=== PATIENT | male | born 2000 | race Caucasian/White ===

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

== ENCOUNTER 2019-11-19 15:10 | Emergency (ER) | payer OTHER ==
[~2019-11-19] VITALS: Ht 182 cm; Wt 72.5 kg
[~2019-11-19 15:10] MED LIST changes: +CEPH-507 PO
[2019-11-19] MEDS ORDERED: TETRACAINE 0.5% OPHTH SOLN 4 ML BTL (SINGLE DOSE ONLY) OU ONE (16:30)
[2019-11-19] MEDS ORDERED: BSS 15 ML IR ONE (16:30)
[2019-11-19] MEDS ORDERED: FLUORESCEIN (FLUOR-I-STRIPS) 1 MG STRP OU ONE (16:30)
[2019-11-19] MEDS ORDERED: TROPICAMIDE 1% OPH SOLN (MYDRIACYL) 3 ML BTL OU ONE (17:15)
--- NOTE | 2019-11-19 17:21 | ED EENT ---
History of Present Illness General Chief Complaint: Eye Problems Stated Complaint: FOREIGN OBJECT IN EYE Nursing Triage Note: PT PRESENTS TO ED WITH COMPLAINTS OF L EYE PAIN AFTER GRINDING SOME METAL TODAY. PT BELIEVES HE GOT SOME METAL IN HIS EYE. History of Present Illness Date Seen by Provider: Nov 19, 2019 Time Seen by Provider: 15:45 Initial Comments 19 year old male present with foreign body to left eye. Patient reports he was using a wire brush to clean a trailer, he is afraid one of the bristles came off and is in his left eye. He does not wear contacts or glasses. He was not wearing eye protection. No previous history of injuries to the left eye. Location: eye (L) Associated Symptoms: denies symptoms Allergies and Home Medications Allergies Coded Allergies: No Known Drug Allergies (Unverified , 08/10/14) Home Medications Cephalexin 500 Mg Capsule, 500 MG PO TID Prescribed by: KATHRINE MCCLELLAND on 12/21/16 2342 Cephalexin Monohydrate 500 Mg Capsule, 1 EACH PO BID Prescribed by: JEANNETTE DEL REAL on 08/10/14 1722 Hydrocodone Bit/Acetaminophen 1 Tab Tablet, 1-2 TAB PO Q6H PRN for PAIN Prescribed by: JEANNETTE DEL REAL on 08/10/14 1722 Tobramycin 5 Ml Drops, 2 DROPS OS Q4H Prescribed by: KATHRINE MCCLELLAND on 11/19/19 1724 Patient Home Medication List Home Medication List Reviewed: Yes Review of Systems Review of Systems Constitutional: no symptoms reported, see HPI Eyes: See HPI, Blurred Vision, Foreign Body Sensation, Inflammation, Pain All Other Systems Reviewed Negative Unless Noted: Yes Past Bulyxxg-Csehlh-Saogvi Hx Past Med/Social Hx: Reviewed Nursing Past Med/Soc Hx Patient Social History Alcohol Use: Occasionally Uses Recreational Drug Use: No Smoking Status: Never a Smoker 2nd Hand Smoke Exposure: No Recent Foreign Travel: No Contact w/Someone Who Travel: No Recent Infectious Disease Expo: No Recent Hopitalizations: No Physical Abuse: No Sexual Abuse: No Mistreated: No Fear: No Immunizations Up To Date Tetanus Booster (TDap): Unknown PED Vaccines UTD: Yes Seasonal Allergies Seasonal Allergies: No Past Medical History Surgeries: No Respiratory: No Cardiac: Yes Heart Murmur Neurological: No Genitourinary: No Gastrointestinal: No Musculoskeletal: No Endocrine: No HEENT: No Cancer: No Psychosocial: No Integumentary: No Blood Disorders: No Physical Exam Vital Signs Vital Signs - First Documented 11/19/19 15:23 Temp 36.8 Pulse 76 Resp 20 B/P (MAP) 145/90 (108) Pulse Ox 98 Height, Weight, BMI Height: 6'0" Weight: 165lbs. oz. 74.076328gh; 21.00 BMI Method:Stated General Appearance: WD/WN, no apparent distress Eyes: right eye normal inspection; left eye PERRL, left eye EOMI, left eye corneal abrasion, left eye ocular penetration (metal bristle into cornea, over pupil) Neck: non-tender, full range of motion, supple, normal inspection Cardiovascular: normal peripheral pulses, regular rate, rhythm Respiratory: chest non-tender, lungs clear, normal breath sounds Neurologic/Psychiatric: no motor/sensory deficits, alert, normal mood/affect, oriented x 3 Procedures/Interventions Eye : Location: left eye Eye FB Removal: other (Using needle drive, the metal bristle was gently removed, penetrated approximately 2 mm) Anesthesia (gtts): Tetracaine Progress/Procedure Conclusion small fluid released after bristle removed, no continued fluid. Patient reports immediate relief in symptoms. Spoke to Dr. Ni by phone. Used Florescein and Neg Sedel's sign. Pupil dilated with Tropicamide Progress/Results/Core Measures Results/Orders My Orders Orders - KATHRINE MCCLELLAND Tropicamide 1% Ophthalmic Soln (Mydriacy (11/19/19 17:15) Medications Given in ED Current Medications Medications Dose Ordered Sig/Thang Route Start Time Stop Time Status Last Admin Dose Admin Balanced Salt Solution 15 ml ONCE ONCE IR 11/19/19 16:30 11/19/19 16:31 DC 11/19/19 17:00 15 ML Fluorescein Sodium 1 mg ONCE ONCE OU 11/19/19 16:30 11/19/19 16:31 DC 11/19/19 17:00 1 MG Tetracaine HCl 4 ml ONCE ONCE OU 11/19/19 16:30 11/19/19 16:31 DC 11/19/19 17:00 4 ML Tropicamide 1 TO 2 DROPS INTO AFFEC... ONCE ONCE OU 11/19/19 17:15 11/19/19 17:16 DC 11/19/19 17:28 1 ML Vital Signs/I&O 11/19/19 11/19/19 15:23 17:33 Temp 36.8 Pulse 76 80 Resp 20 16 B/P (MAP) 145/90 (108) 130/76 Pulse Ox 98 98 Blood Pressure Mean: 108 Progress Progress Note : Time: 15:45 Progress Note Patient seen and evaluated, will need bristle removed. Procedure discussed with patient, agreeable. 1630 Neg Sedel sign. Pain much better. Discharge instructions and return precautions reviewed. Stressed importance to keep appt with Dr. Ni tomorrw. Departure Impression Primary Impression: Eye foreign body Qualified Codes: T15.92XA - Foreign body on external eye, part unspecified, left eye, initial encounter Disposition: HOME, SELF-CARE Condition: Improved Departure-Patient Inst. Decision time for Depature: 17:20 Referrals: TORITO CALLE OD,LOCAL PHYSICIAN (PCP) Primary Care Physician Patient Instructions: Foreign Body in Eye (DC) Add. Discharge Instructions: Use artificial tears to left eye, as needed over night and in the morning. Use antibiotic drops, as prescribed. Go to see Dr. Ni tomorrow morning at 10:00 am. Do NOT miss this appt. You can cover eye and keep closed, to promote healing. If your symptoms get much worse over night, increased pain, you can call Dr. Ni [phone] He may alternate between Tylenol 650 mg and ibuprofen 600 mg every 4 hours for pain. You may apply wet washcloth left eye as needed. Return to the Emergency Dept for new, urgent health care needs. All discharge instructions reviewed with patient and/or family. Voiced understanding. Scripts Tobramycin (Tobramycin) 5 Ml Drops 2 DROPS OS Q4H, #1 5ML 0 Refills Prov: KATHRINE MCCLELLAND 11/19/19 Copy Copies To 1: TORITO CALLE OD, AMY ARNP Nov 19, 2019 17:21
[2019-11-19] MEDS ORDERED: TBR.3OP51 OS (17:24)
[2019-11-19 17:33] VITALS: BP 130/76
== END 2019-11-19 17:33 | disposition home or self-care (01) ==
LOC: EDUNIT# 15:10 → ER 15:12
DX: T15.02XA Foreign body in cornea, left eye, initial encounter (principal)
CPT/HCPCS: 99282

== ENCOUNTER 2019-11-20 12:12 | Emergency (ER) | payer OTHER ==
[~2019-11-20] VITALS: Ht 182.8 cm; Wt 72.6 kg
[~2019-11-20 12:12] MED LIST changes: +TBR.3OP51 OS
[2019-11-20] MEDS ORDERED: LEVOFLOXACIN 750 MG/150 ML IV 150 ML IV ONE (12:15)
--- NOTE | 2019-11-20 12:37 | ED EENT ---
History of Present Illness General Chief Complaint: Eye Problems Stated Complaint: FOREIGN BODY IN LEFT EYE Source: patient Exam Limitations: no limitations History of Present Illness Date Seen by Provider: Nov 20, 2019 Time Seen by Provider: 12:34 Initial Comments To ER from Dr. Hunt's office. He was seen here last night for a little wire in his left cornea while he was wire brushing something. This was removed, Valeriy's test was negative. Followed up with Dr. Hunt today and there is concern for endophthalmitis. He would like a CT of the left orbit and a dose of 1 g Avelox IV. Timing/Duration: abrupt Severity: moderate Location: eye (L) Associated Symptoms: denies symptoms Allergies and Home Medications Allergies Coded Allergies: No Known Drug Allergies (Unverified , 08/10/14) Home Medications Cephalexin 500 Mg Capsule, 500 MG PO TID Prescribed by: KATHRINE MCCLELLAND on 12/21/16 2342 Cephalexin Monohydrate 500 Mg Capsule, 1 EACH PO BID Prescribed by: JEANNETTE DEL REAL on 08/10/14 1722 Hydrocodone Bit/Acetaminophen 1 Tab Tablet, 1-2 TAB PO Q6H PRN for PAIN Prescribed by: JEANNETTE DEL REAL on 08/10/14 1722 Tobramycin 5 Ml Drops, 2 DROPS OS Q4H Prescribed by: KATHRINE MCCLELLAND on 11/19/19 1724 Patient Home Medication List Home Medication List Reviewed: Yes Review of Systems Review of Systems Constitutional: see HPI Eyes: See HPI Ears: No Symptoms Reported Nose: no symptoms reported Mouth: no symptoms reported Throat: no symptoms reported Respiratory: no symptoms reported Cardiovascular: no symptoms reported Musculoskeletal: no symptoms reported Skin: no symptoms reported Past Qzajzhl-Nzojpp-Wjznhj Hx Patient Social History Alcohol Use: Denies Use Recreational Drug Use: No Smoking Status: Never a Smoker 2nd Hand Smoke Exposure: No Recent Foreign Travel: No Contact w/Someone Who Travel: No Recent Hopitalizations: No Immunizations Up To Date Tetanus Booster (TDap): Unknown PED Vaccines UTD: Yes Seasonal Allergies Seasonal Allergies: No Past Medical History Surgeries: No Respiratory: No Cardiac: Yes Heart Murmur Neurological: No Genitourinary: No Gastrointestinal: No Musculoskeletal: No Endocrine: No HEENT: No Cancer: No Psychosocial: No Integumentary: No Blood Disorders: No Visual Acuity : Eye Location: Left Physical Exam Vital Signs Vital Signs - First Documented 11/20/19 12:21 Temp 36.9 Pulse 72 Resp 20 B/P (MAP) 150/119 (129) Pulse Ox 99 O2 Delivery Room Air Height, Weight, BMI Height: 6'0" Weight: 165lbs. oz. 74.732750rh; 21.00 BMI Method:Stated General Appearance: WD/WN, no apparent distress Eyes: left eye other (left eye has a small rust spot noted at what was presumably the puncture wound. There is some haziness of the cornea around this. There is scleral injection.) Mouth/Throat: normal mouth inspection, pharynx normal Neck: non-tender, full range of motion Respiratory: no respiratory distress, no accessory muscle use Neurologic/Psychiatric: alert, normal mood/affect, oriented x 3 Progress/Results/Core Measures Results/Orders My Orders Orders - JEANNETTE DEL REAL APRN Levofloxacin 750 Mg/150 Ml Iv (Levaquin (11/20/19 12:15) Ed Iv/Invasive Line Start (11/20/19 12:14) Ct Orbit Wo (11/20/19 12:14) Medications Given in ED Current Medications Medications Dose Ordered Sig/Thang Route Start Time Stop Time Status Last Admin Dose Admin Levofloxacin/ Dextrose 150 ml @ 100 mls/hr ONCE ONCE IV 11/20/19 12:15 11/20/19 13:44 11/20/19 13:17 100 MLS/HR Vital Signs/I&O 11/20/19 12:21 Temp 36.9 Pulse 72 Resp 20 B/P (MAP) 150/119 (129) Pulse Ox 99 O2 Delivery Room Air Departure Communication (Admissions) NAME: HERMES BUSTOS MED REC#: [id number] PT STATUS: REG ER : 2000 PHYSICIAN: JEANNETTE DEL REAL APRN ADMIT DATE: 11/20/19/ER Draft Date of Exam:11/20/19 CT ORBIT WO PROCEDURE: CT orbit without contrast. TECHNIQUE: Multiple contiguous axial images were obtained through the facial bones without the use of intravenous contrast. Auto Exposure Controls were utilized during the CT exam to meet ALARA standards for radiation dose reduction. INDICATION: Questionable foreign body in the left orbit. FINDINGS: Both globes are unremarkable. The extraocular muscles appear to be symmetric. No retro-orbital fluid collection is seen. The overlying soft tissues appear to be fairly symmetric. No definite radiopaque foreign body is identified. The orbital mcfarlane are intact. No fractures are seen. The visualized paranasal sinuses are clear. IMPRESSION: Unremarkable CT of the orbits. Dictated on workstation # [id number] Dict: 11/20/19 1314 Trans: 11/20/19 1318 [id number] Interpreted by: SHAUN RIBERA MD Electronically signed by: Impression Primary Impression: Eye infection Qualified Codes: H44.002 - Unspecified purulent endophthalmitis, left eye Disposition: HOME, SELF-CARE Condition: Stable Departure-Patient Inst. Decision time for Depature: 13:24 Referrals: NO,LOCAL PHYSICIAN (PCP/Family) Primary Care Physician Patient Instructions: NO INSTRUCTIONS GIVEN Add. Discharge Instructions: Dr. Hunt will call you with further instruction. All discharge instructions reviewed with patient and/or family. Voiced understanding. Copy Copies To 1: TORITO CALLE OD, PETER J APRN Nov 20, 2019 12:37
--- NOTE | 2019-11-20 13:19 | Diagnostic Imaging Report ---
PROCEDURE: CT orbit without contrast. TECHNIQUE: Multiple contiguous axial images were obtained through the facial bones without the use of intravenous contrast. Auto Exposure Controls were utilized during the CT exam to meet ALARA standards for radiation dose reduction. INDICATION: Questionable foreign body in the left orbit. FINDINGS: Both globes are unremarkable. The extraocular muscles appear to be symmetric. No retro-orbital fluid collection is seen. The overlying soft tissues appear to be fairly symmetric. No definite radiopaque foreign body is identified. The orbital mcfarlane are intact. No fractures are seen. The visualized paranasal sinuses are clear. IMPRESSION: Unremarkable CT of the orbits. Dictated by: Dictated on workstation # [id number]
[2019-11-20 14:44] VITALS: BP 150/119
== END 2019-11-20 14:44 | disposition home or self-care (01) ==
LOC: EDUNIT# 12:12 → ER 12:13
DX: H44.002 Unspecified purulent endophthalmitis, left eye (principal)
CPT/HCPCS: 70480; 96374

== ENCOUNTER 2021-01-22 21:29 | Emergency (ER) | payer OTHER ==
[~2021-01-22] VITALS: Ht 185.5 cm; Wt 72.7 kg
[2021-01-22] MEDS ORDERED: CEPHALEXIN 250 MG (KEFLEX) CAP PO ONE (22:11)
[2021-01-22] MEDS ORDERED: LIDOCAINE 1% INJ 20 ML 20 ML VIAL INJ ONE (22:15)
[2021-01-22] MEDS ORDERED: TETANUS,DIPTH,PERTUSS P/F (BOOSTRIX) 0.5 ML VIAL IM ONE (22:15)
[2021-01-22] MEDS ORDERED: CEPH500T PO (22:21)
--- NOTE | 2021-01-22 22:21 | ED Upper Extremity ---
General Chief Complaint: Laceration Stated Complaint: L HAND LAC Source: patient Exam Limitations: no limitations (JEANNETTE DEL REAL APRN) History of Present Illness Date Seen by Provider: Jan 22, 2021 Time Seen by Provider: 22:18 Initial Comments To ER with c/o laceration to the thenar eminence of the palmar aspect of the lef t hand from an exhaust pipe at home just prior to arrival tetanus is not up-to-date. Onset: just prior to arrival Severity: moderate Pain/Injury Location: left hand Method of Injury: unknown Modifying Factors: Worse With Movement (JEANNETTE DEL REAL APRN) Allergies and Home Medications Allergies Coded Allergies: No Known Drug Allergies (Unverified , 08/10/14) Home Medications Cephalexin 500 Mg Capsule, 500 MG PO TID Prescribed by: KATHRINE MCCLELLAND on 12/21/16 2342 Cephalexin 500 Mg Tablet, 500 MG PO TID Prescribed by: JEANNETTE DEL REAL on 01/22/21 2221 Cephalexin Monohydrate 500 Mg Capsule, 1 EACH PO BID Prescribed by: JEANNETTE DEL REAL on 08/10/14 1722 Hydrocodone Bit/Acetaminophen 1 Tab Tablet, 1-2 TAB PO Q6H PRN for PAIN Prescribed by: JEANNETTE DEL REAL on 08/10/14 1722 Tobramycin 5 Ml Drops, 2 DROPS OS Q4H Prescribed by: KATHRINE MCCLELLAND on 11/19/19 1724 Patient Home Medication List Home Medication List Reviewed: Yes (JEANNETTE DEL REAL APRN) Review of Systems Constitutional: see HPI EENTM: see HPI Respiratory: no symptoms reported Cardiovascular: no symptoms reported Genitourinary: no symptoms reported Musculoskeletal: see HPI Skin: no symptoms reported Psychiatric/Neurological: No Symptoms Reported (JEANNETTE DEL REAL APRN) Past Vruxbrn-Dthztn-Crvmqy Hx Patient Social History 2nd Hand Smoke Exposure: No Recent Hopitalizations: No (JEANNETTE DEL REAL APRN) Immunizations Up To Date Tetanus Booster (TDap): Unknown PED Vaccines UTD: Yes (JEANNETTE DEL REAL APRN) Seasonal Allergies Seasonal Allergies: No (JEANNETTE DEL REAL APRN) Past Medical History Surgeries: No Respiratory: No Cardiac: Yes Heart Murmur Neurological: No Genitourinary: No Gastrointestinal: No Musculoskeletal: No Endocrine: No HEENT: No Cancer: No Psychosocial: No Integumentary: No Blood Disorders: No (JEANNETTE DEL REAL APRN) Physical Exam Vital Signs Vital Signs - First Documented 01/22/21 21:45 Temp 37.1 Pulse 85 Resp 18 B/P (MAP) 151/77 (101) Pulse Ox 98 O2 Delivery Room Air (GUIDO LI MD) Vital Signs Capillary Refill : (JEANNETTE DEL REAL APRN) Height, Weight, BMI Height: 6'0" Weight: 165lbs. oz. [id number]; 21.00 BMI Method:Stated General Appearance: WD/WN, no apparent distress HEENT: PERRL/EOMI, normal ENT inspection Respiratory: no respiratory distress, no accessory muscle use Shoulder: normal inspection, non-tender Hand: Left, laceration (2.5 cm laceration with depth down to the muscle fascia on the thenar eminence of the left hand. Full flexion abilities of the thumb with normal sensation distally. Briskly bleeding arterials.) Neurologic/Psychiatric: alert, normal mood/affect, oriented x 3 Skin: normal color, warm/dry (JEANNETTE DEL REAL APRN) Departure Communication (Admissions) Area was anesthetized with lidocaine without epinephrine. Scrubbed with chlorhexidine/saline solution then irrigated with about 200 mL of the same. No foreign bodies identified. Closed with 7 simple erupted sutures size 4-0 Ethilon. (JEANNETTE DEL REAL APRN) Impression Primary Impression: Laceration of hand Disposition: 01 HOME, SELF-CARE Condition: Stable Departure-Patient Inst. Decision time for Depature: 22:20 (JEANNETTE DEL REAL APRN) Referrals: NO,LOCAL PHYSICIAN (PCP/Family) Primary Care Physician Patient Instructions: Laceration Repair With Stitches ED Add. Discharge Instructions: 1. Return to ER for any concerns. Follow-up with your doctor next week. Return to ER in about 10 days to have the stitches removed. Before then if you have any sign of infection such as redness or swelling. Take the antibiotics as directed. Change the dressing daily. He can let water run over it All discharge instructions reviewed with patient and/or family. Voiced understanding. Scripts Cephalexin (Cephalexin) 500 Mg Tablet 500 MG PO TID, #15 TAB Prov: JEANNETTE DEL REAL APRN 01/22/21 Attending physician note: I was physically present as attending physician in the emergency department during the care of this patient, but I did not participate directly in the care of this patient. (GUIDO LI MD) JEANNETTE DEL REAL APRN Jan 22, 2021 22:21 GUIDO LI MD Jan 23, 2021 14:23
[2021-01-22 22:30] VITALS: BP 151/77
[2021-01-23] MEDS ORDERED: CEPHALEXIN 250 MG (KEFLEX) CAP PO SCH (09:00)
== END 2021-01-22 22:30 | disposition home or self-care (01) ==
LOC: EDUNIT# 21:29 → ER 21:31
DX: S61.412A Laceration without foreign body of left hand, initial encounter (principal); Z23 Encounter for immunization; W26.8XXA Contact with other sharp object(s), not elsewhere classified, initial encounter; Y92.009 Unspecified place in unspecified non-institutional (private) residence as the place of occurrence of the external cause
CPT/HCPCS: 12001; 90715